=== PATIENT | female | born 1960 | race Caucasian/White ===

== ENCOUNTER 2021-08-13 07:56 | Outpatient (CLI) | payer OTHER, SELFPAY ==
--- NOTE | 2021-08-13 08:02 | MM_ITS ---
WS: [id number] Bilateral screening digital mammogram, 08/13/2021 Clinical Data: SCREENING Comparison: 07/08/2020, 01/15/2019, 11/10/2016, 12/01/2015. Findings: The breast parenchymal pattern shows fat replacement. No spiculated masses or clustered calcification s are seen. There are no secondary signs of carcinoma. MM/[place] [id number] Impression: 1. Negative bilateral mammogram unchanged. 2. Recommend annual screening mammograms. BIRADS: 1-Negative FOLLOW UP: 1 Year Follow-up The CAD color checker was used.
== END 2021-08-13 07:57 | disposition home or self-care (01) ==
LOC: RADSHAW 08:01
PROVIDERS: PCP Nurse Practitioner Family; Visit Provider Nurse Practitioner Family
DX: Z12.31 Encounter for screening mammogram for malignant neoplasm of breast (principal)
CPT/HCPCS: 77067

== ENCOUNTER 2022-04-20 13:51 | Outpatient (CLI) | payer OTHER, SELFPAY ==
--- NOTE | 2022-04-20 13:45 | MR_ITS ---
WS: [id number] MRI THORACIC SPINE WITHOUT CONTRAST TECHNIQUE: Sagittal T1, T2 and STIR imaging. Axial T2 imaging. Noncontrast imaging obtained. CLINICAL INFORMATION: lumbar pain COMPARISON: None. FINDINGS: Mild acute appearing compression superior endplate T11 and T12 with associated edema. Mild loss vertebral body height T12 measuring 20%. No significant retropulsion. Trace edema in the T11 end plate with no significant loss vertebral body height. Moderate facet arthropathy lower thoracic spine. No significant disc protrusions or extrusions. Mild bony foraminal narrowing bilateral T10-T11 and RIGHT T11-T12 . Mild central canal stenosis T10/T11 du e to minimal disc bulging in combination with facet arthropathy ligamentum flavum hypertrophy Moderate thoracic kyphosis. Mild chronic anterior wedging in the mid thoracic spine. No high-grade ce ntral canal stenosis. Central syrinx in the mid lower thoracic cord measuring approximately 1.3 mm in maximum transverse dimension. Cord signal is otherwise normal. Normal caliber thoracic aorta. Adrenal glands are normal. Normal GE junction. RIGHT hepatic cyst or h emangioma measuring 14 mm. Anterior hypertrophic changes thoracic spine Moderate central canal stenosis in cervical spine seen on the damage adjuster imaging with disc osteophyte comp lexes worse at C5-C6 and C6-C7. MR/MR thoracic spin wo con* [id number] IMPRESSION: 1. Small central syrinx in the thoracic cord extending from T9 through T12 curt suring 1.3 mm in maximum AP dimension. Cord signal is otherwise normal. 2. Mild acute compression fractures superior endplate T11 and T12 worse at T12 with loss of approximately 20% vertebral body height at this level. Associated edema. No significant loss of height at T11. No significant retropulsion. 3. Mild central canal stenosis T10-T11 due to mild disc bulging in combination with facet arthropathy and ligamentum flavum hypertrophy. 4. Moderate central canal stenosis in the cervical spinal damage adjuster imaging. This can be further evaluated with cervical spine MRI.
== END 2022-04-20 13:52 | disposition home or self-care (01) ==
PROVIDERS: PCP Nurse Practitioner Family; Visit Provider Physician Assistant
DX: M54.50 Low back pain, unspecified (principal)
CPT/HCPCS: 72146

== ENCOUNTER 2022-05-13 07:20 | Day surgery (SDC) | payer OTHER, SELFPAY ==
[2022-05-09 07:57] VITALS: BMI 33.6
--- NOTE | 2022-05-09 15:53 | ANES.PREANE2 ---
Pre-Anesthetic Assessment Height/Weight: Height 1.75 m Weight 103.419 kg Preop Diagnosis: Compression fx Operation Date: 05/13/22 10:20 Proposed Procedures p Kyphoplasty T1/T12 56131A8/S22.000A(Not Applicable) - Alexis Michaud DO Familial anesthetic complications: Has hx of waking up during myomectomy and during separate procedure, bunionectomy Hx of difficult PIV placement Was Beta Genevieve taken within 24 hours: N/A Was Clonidine taken within 24 hours: N/A Social No alcohol and No tobacco Exam alert, oriented x 3, clear to auscultation bilaterally and regular rate & rhythm Airway Submandibular: within normal limits Cervical ROM: within normal limits Mallampati: Class II Dentition: full Pulmonary Long COVID syndrome CV/HEM None reported METS = 4 None reported Hepatic None reported GI None reported Metabolic Thyroid Disease Musc/skel Lower Back Pain and Osteoarthritis/DJD Compression fx Neuropsych None reported Anesthetic Plan ASA status: 2 Anesthesia: Anesthesia Evaluation and General Other: We discussed risk and benefits of general anesthesia including PONV, sore throat (sometimes severe), corneal abrasion, positioning and peripheral nerve injuries, life threatening allergic reaction, post operative ICU admission requiring prolonged intubation, aspiration, ischemic optic neuropathy with blindness, stroke, heart attack, , and rare incidences of recall. Patient consents to proceed with general anesthesia. Risk of > 500 ml blood loss (7ml/kg in children): No Medications/Allergies Home Medications Medication Instructions Recorded Confirmed Last Taken Type epinephrine 0.3 mg/0.3 mL 0.3 mg IM Q10M PRN Allergic 07/28/20 05/09/22 Unknown History injection, auto-injector Reaction thyroid (pork) 90 mg tablet 90 mg PO DAILY 07/29/21 05/09/22 Unknown History ([place] Thyroid) cyclobenzaprine 10 mg tablet 10 mg PO TID PRN muscle spasms 03/01/22 05/09/22 Unknown History ibuprofen 800 mg tablet 800 mg PO BEDTIME 03/01/22 05/09/22 Unknown History cetirizine 10 mg capsule (Zyrtec) 10 mg PO DAILY 04/28/22 05/09/22 Unknown History Allergies Allergy/AdvReac Type Severity Reaction Status Date / Time mold Allergy Mild Unknown Verified 05/09/22 07:56 fire ant Allergy anaphylaxis Verified 05/09/22 07:56 venom-honey bee Allergy anaphylaxis Verified 05/09/22 07:56 [facility] Anesthesia Medical History History of COVID-19 Menopausal syndrome No pertinent past medical history neghx: htn,dm,dvt/pe PCP: Kalyan Ahumada [facility] Plantar fasciitis, left Surgical History Cataract extraction status of left eye (~2013) Cataract extraction status, right eye (~2019) H/O myomectomy (~1992) History of bunionectomy (~2008) History of reversal of tubal ligation (~1992) confirmed patency Hx of section 1) 1980 2) 1983 Hx of tubal ligation (~1983) Family History Father Heart disease Denies family history of Colon cancer Ovarian cancer Diabetes Clotting disorder Hypercholesteremia Breast cancer Bleeding disorder Hypertension Uterine cancer Thyroid disease Stroke Social History Smoking and tobacco status: never smoked Additional social history: - Data Anesthesia Cardiac Studies: No Data to Display
[2022-05-13] VITALS (10 sets, daily range): BP systolic 105–150; BP diastolic 51–83; PULSE 62–91; RESP 9–18; TEMP 36.1–36.2; O2SAT 98–100
--- NOTE | 2022-05-13 | SCC_ITS ---
Procedure: 1. Kyphoplasty T11 2. Kyphoplasty T12 36.6 seconds of fluoroscopic guidance, for a cumulative dose of 63.76 mGy and 118.89 mGy, was provided to Dr. Michaud by the radiology department. C-arm images of the thoracic spine were saved for the patient's permanent record. [facility]
--- NOTE | 2022-05-13 07:02 | W.PM.OPSUD ---
Surgery/Procedure H&P Update DATE OF PROCEDURE: May 13, 2022 DATE H&P PERFORMED: 04/28/22 H&P UPDATE INFORMATION: I have reviewed H&P completed within last 30 days, I have examined patient prior to procedure and No changes to prior documentation PREOP DIAGNOSIS: Compression fx PLANNED PROCEDURE: Operation Date: 05/13/22 08:50 Proposed Procedures p Kyphoplasty T11/T12 69876L9/S22.000A(Not Applicable) - Alexis Michaud DO
--- NOTE | 2022-05-13 07:22 | SC_ITS ---
WS: [id number] C-arm fluoroscopy for kyphoplasty of lower thoracic vertebral bodies, 05/13/2022 Clinical Data: Kyphoplasty T11 and T12 Comparison: None. Findings: Marcus Tamayo performed kyphoplasty on the T11 and T12 vertebral bodies. SC/C-arm FL for Kyphoplasty Impression: T11 and T12 kyphoplasty.
[2022-05-13] MEDS: sodium chloride 0.9% 1,000 ML 30 ML IV (07:57)
--- NOTE | 2022-05-13 08:03 | P.ANESUD_ITS ---
Pre-Anesthetic Update Pre-Anesthetic Assessment: Date of Surgery/Procedure: 05/13/22 Preop Elaine gnosis: Compression fracture T11 and T12 Proposed Procedure: Operation Date: 05/13/22 08:50 Proposed Procedures p Kyphoplasty T11/T12 [id number]/S22.000A(Not Applicable) - Alexis Michaud, DO Any changes to Pre-Anesthetic Assessment?: No Last Intake: Intake Last Liquid Date 05/12/22 Last Liquid Time 20:00 Last Solid Date 05/12/22 Last Solid Time 17:00 Vitals: Temperature 97 F L 05/13/22 07:36 Temperature Source Temporal Artery S can 05/13/22 07:36 Pulse Rate 89 05/13/22 07:36 Respiratory Rate 18 05/13/22 07:36 Blood Pressure 147/64 05/13/22 07:36 Blood Pressure Rachel n 91 05/13/22 07:36 Pulse Oximetry 100 05/13/22 07:36 Oxygen Delivery Me thod 05/13/22 07:36 Exam: Pre-Anes Outpt Exam: alert, oriented x 3, clear to auscultation bilaterally and regular rate & rhythm Cardiac Studies: No Data to Display
[2022-05-13] MEDS: ceFAZolin 2,000 MG in sodium chloride 0.9% (plus) 50 ML 100 MG IV (08:59)
--- NOTE | 2022-05-13 10:29 | SUR.PHASEI ---
patient awake and on room air. patient states minimal pain in low back. says she does not need pain medication for it at this time. dressings dry and intact.
--- NOTE | 2022-05-13 10:42 | PM.OP ---
Operative Report Date of procedure: May 13, 2022 Pre-op diagnosis: Preop Diagnosis osteoporotic wedge Compression fracture T11 and T12 Post-op diagnosis: same Procedure done: 1. Kyphoplasty T11 2. Kyphoplasty T12 Surgeon: Alexis Michaud Estimated blood loss (mL): 5 Procedure: 1. Kyphoplasty T11 2. Kyphoplasty T12 Patient was brought to the op suite placed in the prone position after undergoing anesthesia. All does appear well-padded. C-arm was brought in as biplanar., Both in AP and lateral C-arm were used. The T11 and T12 levels were identified. Patient was then prepped and draped normal sterile fashion. Skin incision was made just lateral to the T12 pedicle of the garbage was inserted. A biopsy needle was used and bone was taken and sent for biopsy. Then the drill was inserted followed by the balloon. This process was repeated on the right side of the pedicle and T12. The skin incision was made followed by the followed by the drill followed by the balloon AP lateral fluoroscopy used to problem. Next attention was brought to the T11 level. 7 screws made at the superior lateral aspect of the pedicle on the left side. T11. The awl was used followed by the drill followed by balloon. Once the bone was removed. Then cement was placed at L3 with tubes. The T12 vertebrae is filled and confirmed to be in good position all the cement was in good position on AP lateral fluoroscopy. T11 was filled and both AP and lateral fluoroscopy used to ensure that the cement was in good position. Wounds were irrigated and closed with nylon suture. Sterile dressings were applied and patient was transferred to the PACU in stable condition.
[2022-05-13] MEDS: HYDROcodone-acetaminophen 5-325 mg Tablet 1 TAB PO (11:00)
--- NOTE | 2022-05-13 12:24 | ANE.PACU2 ---
Inpatient post-anesthesia follow up: Airway intact: Yes Vital signs: Temperature 97.1 F Pulse Rate 74 Respiratory Rate 16 Blood Pressure 105/73 Pulse Oximetry 98 Oxygen Delivery Me thod Room Air Oxygen Flow Rate 8 Fraction of Inspir ed Oxygen Hydration adequate: Yes Nausea and vomiting: No Pain level: 1 Mental status: Baseline
== END 2022-05-13 11:15 | disposition home or self-care (01) ==
PROVIDERS: PCP Nurse Practitioner Family; Visit Provider Orthopaedic Surgery
PROC: (CPT 22513; principal; 2022-05-13 08:40)
DX: S22.080A Wedge compression fracture of T11-T12 vertebra, initial encounter for closed fracture (principal); X58.XXXA Exposure to other specified factors, initial encounter; Z86.16 Personal history of COVID-19
CPT/HCPCS: 22513; 22515; 76000; 88307; 88311; J1100; J2405; J2704; J2710; J3010; J3490; J7030

== ENCOUNTER → 2022-08-05 09:35 | Outpatient (BNVA) | payer OTHER, SELFPAY | PROVIDERS: PCP Nurse Practitioner Family; Visit Provider Nurse Practitioner Women's Health | DX: Z12.4 Encounter for screening for malignant neoplasm of cervix (principal); N95.1 Menopausal and female climacteric states | CPT/HCPCS: 87624 ==

== ENCOUNTER 2022-08-31 11:12 | Outpatient (CLI) | payer OTHER, SELFPAY ==
--- NOTE | 2022-08-31 11:28 | MM_ITS ---
WS: [id number] SCREENING DIGITAL TOMOSYNTHESIS MAMMOGRAM WITH CAD HISTORY: Screening exam. COMPARISON: 08/13/2021 and 07/08/2020 Bilateral CC and MLO with tomosynthesis views submitted. Synthetic mammography reviewed. Computer aid ed detection analyzed. Breast composition: The breasts are almost entirely fatty. No suspicious masses, microcalcifications or architectural distortion. MM/[place] [id number] IMPRESSION: BI-RADS: 1-Negative FOLLOW UP: 1 Year Follow-up
== END 2022-08-31 11:13 | disposition home or self-care (01) ==
LOC: RAD 11:17
PROVIDERS: PCP Nurse Practitioner Family; Visit Provider Nurse Practitioner Women's Health
DX: Z12.39 Encounter for other screening for malignant neoplasm of breast (principal)
CPT/HCPCS: 77063; 77067